=== PATIENT | male | born 2005 | race Caucasian/White ===

== ENCOUNTER 2023-09-13 22:36 | Emergency (ER) | payer BC, OTHER ==
[2023-09-13 22:51] VITALS: BP 108/68; PULSE 78; RESP 18; TEMP 97.5; BMI 21.9
[2023-09-13 23:47] LABS: EPI CELLS 4 /uL (0-25.1); HYALINE CASTS 0 /uL (0-3.1); URINE APPEARANCE CLOUDY; URINE BACTERIA 40 /uL (0-1359); URINE BILIRUBIN NEGATIVE (NEGATIVE); URINE COLOR YELLOW; URINE GLUCOSE (UA) NEGATIVE (NEGATIVE); URINE KETONE TRACE (NEGATIVE); URINE LEUK ESTERASE 2+ (NEGATIVE); URINE NITRITE NEGATIVE (NEGATIVE); URINE PROTEIN 1+ (NEGATIVE); URINE RBC 115 /uL (0-23.9); URINE WBC 6584 /uL (0-25.8)
[2023-09-14] MEDS ORDERED: DOXYCYCLINE HYCLATE 100 MG CAPSULE PO ONE (00:02)
[2023-09-14] MEDS ORDERED: LIDOCAINE HCL 1%, 10 MG/ML (20ML VIAL) ONE (00:03)
[2023-09-14] MEDS: DOXYCYCLINE HYCLATE 100 MG CAPSULE PO ONE (00:11)
[2023-09-14] MEDS ORDERED: oxyCODONE HCL 5 MG TABLET ONE (02:40)
== END 2023-09-14 02:38 | disposition home or self-care (01) ==
LOC: JER 22:36
DX: R30.0 Dysuria (principal); A64 Unspecified sexually transmitted disease; R39.11 Hesitancy of micturition
CPT/HCPCS: 36415; 81003; 87086; 87491; 87591; 87661; 99284-25